=== PATIENT | male | born 1950 | race Caucasian/White ===

== ENCOUNTER 2022-10-13 10:16 | Outpatient (CLI) | payer MEDICARE, OTHER ==
[2022-10-13] MEDS ORDERED: Magnevist 469MG/ML 20 ML VIAL ONE (10:57)
== END 2022-10-13 10:17 | disposition home or self-care (01) ==
LOC: CSHMRI 10:16
PROVIDERS: ATTEND Student in an Organized Health Care Education/Training Program
DX: H90.3 Sensorineural hearing loss, bilateral (principal)
CPT/HCPCS: 70553; A9579